=== PATIENT | male | born 1970 | race Caucasian/White ===

== ENCOUNTER → 2018-12-16 14:37 | Outpatient (CLI) | payer OTHER, SELFPAY | PROVIDERS: Family Provider Orthopaedic Surgery Sports Medicine; PCP Registered Nurse; Visit Provider Orthopaedic Surgery | DX: R20.2 Paresthesia of skin (principal); M75.100 Unspecified rotator cuff tear or rupture of unspecified shoulder, not specified as traumatic | CPT/HCPCS: 95885; 95886; 95909 ==